=== PATIENT | female | born 1945 | race Caucasian/White ===

== ENCOUNTER 2021-09-20 21:04 | Emergency (ER) | payer MEDICARE, SELFPAY ==
[2021-09-20 22:11] LABS: BASO % 0.3 % (0.0-1.0); EOS # 0.2 10^3/uL (0.0-0.5); EOS % 2.5 % (0.0-3.0); HEMATOCRIT 38.9 % (36.0-47.0); HEMOGLOBIN 12.8 g/dl (12.0-15.5); LYMPH # 1.2 10^3/uL (1.5-5.0); LYMPH % 19.2 % (24.0-44.0); MEAN CORPUSCULAR HEMOGLOBIN 30.7 pg (27.0-33.0); MEAN CORPUSCULAR HGB CONC 32.9 g/dl (32.0-36.5); MEAN CORPUSCULAR VOLUME 93.3 fl (80.0-96.0); MONO # 0.5 10^3/uL (0.0-0.8); MONO % 8.5 % (2.0-8.0); NEUTROPHILS # 4.2 10^3/uL (1.5-8.5); NEUTROPHILS % 69.3 % (36.0-66.0); PLATELET COUNT, AUTOMATED 216 10^3/uL (150-450); RED BLOOD COUNT 4.17 10^6/uL (4.00-5.40); WHITE BLOOD COUNT 6.1 10^3/uL (4.0-10.0)
[2021-09-20 22:33] LABS: AMPHETAMINES LEVEL URINE NEGATIVE (NEGATIVE); BARBITURATES URINE NEGATIVE (NEGATIVE); BENZODIAZEPINES URINE NEGATIVE (NEGATIVE); CANNABINOIDS URINE NEGATIVE (NEGATIVE); COCAINE METABOLITE URINE NEGATIVE (NEGATIVE); METHADONE URINE NEGATIVE (NEGATIVE); OPIATES URINE NEGATIVE (NEGATIVE); PHENCYCLIDINE URINE NEGATIVE (NEGATIVE)
[2021-09-20 22:39] LABS: ACETAMINOPHEN LEVEL < 2.0 UG/ML (10.0-30.0); ALBUMIN 3.4 GM/DL (3.2-5.2); ALT/SGPT 18 U/L (12-78); BILIRUBIN,TOTAL 0.2 MG/DL (0.2-1.0); BLOOD UREA NITROGEN 11 MG/DL (7-18); CALCIUM LEVEL 8.5 MG/DL (8.8-10.2); CARBON DIOXIDE LEVEL 26 MEQ/L (21-32); CHLORIDE LEVEL 110 MEQ/L (98-107); CREATININE FOR GFR 0.87 MG/DL (0.55-1.30); ETHYL ALCOHOL (ETHANOL) 0.198 % (0.000-0.010); GLOMERULAR FILTRATION RATE > 60.0 (>39); GLUCOSE, FASTING 127 MG/DL (70-100); MAGNESIUM LEVEL 2.2 MG/DL (1.8-2.4); NT-PRO BNP 1557 PG/ML (<125); POTASSIUM SERUM 3.7 MEQ/L (3.5-5.1); SALICYLATE LEVEL < 1.7 MG/DL (5.0-30.0); SODIUM LEVEL 144 MEQ/L (136-145); TOTAL PROTEIN 6.2 GM/DL (6.4-8.2)
[2021-09-20 23:15] VITALS: BP 136/74
== END 2021-09-21 00:57 | disposition home or self-care (01) ==
LOC: M ED 21:04 → EDBD 21:04 → M ED 09-21 00:57
DX: F10.120 Alcohol abuse with intoxication, uncomplicated (principal); I44.4 Left anterior fascicular block

== ENCOUNTER → 2022-11-21 | Outpatient (CLI) | payer MEDICARE | LOC: M CARPUL 11:03 | PROVIDERS: ATTEND Internal Medicine Cardiovascular Disease | DX: I50.9 Heart failure, unspecified (principal); I42.1 Obstructive hypertrophic cardiomyopathy ==

== ENCOUNTER → 2023-09-29 | Outpatient (CLI) | payer MEDICARE | LOC: M WHC 11:26 | PROVIDERS: ATTEND Nurse Practitioner | DX: Z12.31 Encounter for screening mammogram for malignant neoplasm of breast (principal); M81.0 Age-related osteoporosis without current pathological fracture ==

== ENCOUNTER → 2023-09-29 | Outpatient (CLI) | payer MEDICARE | LOC: M PLAIMG 11:14 | PROVIDERS: ATTEND Nurse Practitioner | DX: G91.9 Hydrocephalus, unspecified (principal); Z12.31 Encounter for screening mammogram for malignant neoplasm of breast; M81.0 Age-related osteoporosis without current pathological fracture ==

== ENCOUNTER → 2024-03-15 | Outpatient (CLI) | payer MEDICARE | LOC: M RAD 17:10 | PROVIDERS: ATTEND Internal Medicine Cardiovascular Disease | DX: I71.21 Aneurysm of the ascending aorta, without rupture (principal) ==

== ENCOUNTER → 2024-05-13 | Outpatient (CLI) | payer MEDICARE | LOC: M RAD 09:23 | PROVIDERS: ATTEND Internal Medicine Cardiovascular Disease | DX: I71.40 Abdominal aortic aneurysm, without rupture, unspecified (principal) ==

== ENCOUNTER → 2024-07-12 | Outpatient (REF) | payer MEDICARE | LOC: M SFHCDERM 13:17 | PROVIDERS: ATTEND Physician Assistant | DX: L82.0 Inflamed seborrheic keratosis (principal) ==

== ENCOUNTER → 2025-02-22 | Outpatient (CLI) | payer MEDICARE | LOC: M RAD 16:23 | DX: R29.818 Other symptoms and signs involving the nervous system (principal); F05 Delirium due to known physiological condition ==